=== PATIENT | male | born 1980 | race Caucasian/White ===

== ENCOUNTER 2022-09-29 10:28 | Emergency (ER) | payer SELFPAY ==
[~2022-09-29] VITALS: Ht 193 cm; Wt 108.9 kg
[2022-09-29 10:45] VITALS: BP_SYST 131
--- NOTE | 2022-09-29 10:47 | NUR ---
Patient to ER bed 05 to gown for evaluation. Side rails up. Report given to DOMO YUAN AND DOMO DE LEON.
--- NOTE | 2022-09-29 10:48 | NUR ---
PT CAME IN WITH MOTHER FROM HOME C.O LEFT WRIST PAIN X 1 MONTH, WORSE X 2 DAYS, HX OF GOUT (CURRENTLY ON ALLOPURIOL), DENIES INJURY OR TRAUMA TO AREA. PT IS AMBULATORY, AAOX4M VSS
--- NOTE | 2022-09-29 10:50 | NUR ---
Patient BIB by mother from home. Patient A&Ox4, stable. Chief Complaint: Left wrist pain x 1 mo gradual onset pain right now 9/10 intefering with sleep. Patient denies injury.
--- NOTE | 2022-09-29 10:56 | NUR ---
ER Dr. Mccormick at bedside examining patient.
[2022-09-29] MEDS ORDERED: HYDROcodone/ACETAMIN 10-325 MG TAB PO ONE (11:00)
[2022-09-29] MEDS ORDERED: KETOROLAC TROMETHAMINE 60 MG/2 ML VIAL IM ONE (11:00)
[2022-09-29 11:15] LABS: BASOPHILS # (AUTO) 0.1 K/uL (0.0-0.2); BASOPHILS % (AUTO) 0.9 % (0.0-2.0); EOSINOPHILS # (AUTO) 0.3 K/uL (0.0-0.4); EOSINOPHILS % (AUTO) 3.9 % (0.0-4.0); HEMATOCRIT 46.7 % (36-54); HEMOGLOBIN 16.1 g/dL (14.0-18.0); LYMPHOCYTES # (AUTO) 1.5 K/uL (1.0-5.5); LYMPHOCYTES % (AUTO) 22.4 % (20.5-51.5); MEAN CORPUSCULAR HEMOGLOBIN 30 pg (27-31); MEAN CORPUSCULAR HGB CONC 35 % (32-36); MEAN CORPUSCULAR VOLUME 87 fL (79.0-98.0); MONOCYTES # (AUTO) 0.4 K/uL (0.0-1.0); MONOCYTES % (AUTO) 6.2 % (1.7-9.3); NEUTROPHILS # (AUTO) 4.4 K/uL (1.8-7.7); NEUTROPHILS % (AUTO) 66.6 % (40.0-70.0); PLATELET COUNT (AUTO) 146 K/uL (130-430); RED BLOOD CELL COUNT(AUTO) 5.38 MIL/uL (4.2-6.2); RED CELL DISTRIBUTION WIDTH 13.3 % (9.0-15.0); WHITE BLOOD COUNT (AUTO) 6.6 K/uL (4.8-10.8)
[2022-09-29 11:19] LABS: ERYTHROCYTE SEDIMENTATION RATE 5 MM/HR (0-15)
--- NOTE | 2022-09-29 11:30 | NUR ---
Search Engine Optimizer re: homelessness Met with patient at bedside with his mother present. The patient resides at home with his mother. He is not homeless, and does have stable housing. I spoke with DOMO Stallings who advised that the triage assessment was completed incorrectly ini regards to the housing area. She indicated she would have EUGENE Kimball make the proper correction as it is known that the patient is not homeless. There are no further needs from social media sr strategy manager at this time.
[2022-09-29 11:38] LABS: ANION GAP 9 (5-15); CALCIUM 9.2 mg/dL (8.4-11.0); CHLORIDE 104 mmol/L (98-107); CREATININE 1.38 mg/dL (0.55-1.30); GFR AFRICAN AMERICAN 72 mL/min (>90); GLUCOSE 150 mg/dL (70-99); UREA NITROGEN, BLOOD 20 mg/dL (8-21)
--- NOTE | 2022-09-29 11:38 | NUR ---
Patient given Toradol and Bexar as ordered by Dr. Mccormick. Patient denied any allergies prior to administration. Patient tolerated IM injection of Toradol well. Patient reports pain at 9/10 prior to administration. Patient a&ox4 and stable with mother at bedside at this time.
[2022-09-29 11:43] LABS: ALANINE AMINOTRANSFERASE 39 U/L (12-78); ALBUMIN 4.2 g/dL (3.4-4.8); ASPARTATE AMINOTRANSFERASE 26 U/L (10-37); C-REACTIVE PROTEIN QUANT < 0.2 mg/dL (0-0.5); TOTAL BILIRUBIN 1.2 mg/dL (0.0-1.0); URIC ACID 7.1 mg/dL (2.4-7.0)
[2022-09-29] MEDS ORDERED: IBUP-1971 PO (12:39)
[2022-09-29] MEDS ORDERED: TRAM50TA2 PO (12:39)
--- NOTE | 2022-09-29 13:00 | NUR ---
Patient given written and verbal discharge instructions and verbalizes understanding. ER MD Mccormick discussed with patient the results and treatment provided. Patient in stable condition. ID arm band removed. I Rx of Ibuprofen and Tramadol sent to [facility] on file. Patient educated on pain management and to follow up with PMD. Opportunity for questions provided and answered. Patient discharged a&ox4 and stable with mother walking out.
== END 2022-09-29 13:00 | disposition home or self-care (01) ==
LOC: SED 10:28
DX: M10.9 Gout, unspecified (principal); M25.532 Pain in left wrist; Z79.899 Other long term (current) drug therapy
CPT/HCPCS: 99284; 80053; 84550; 85025; 85651; 86140; 36415; 73110; 96372; J1885

== ENCOUNTER 2022-10-15 00:36 | Emergency (ER) | payer MEDICAID ==
[~2022-10-15] VITALS: Ht 193 cm; Wt 108.9 kg
[~2022-10-15 00:36] MED LIST: IBUP-1971 PO; TRAM50TA2 PO
[2022-10-15 00:42] VITALS: BP_SYST 169
[2022-10-15] MEDS ORDERED: MAG-AL HYDROX/SIMETH 30 ML UDC PO ONE (01:15)
[2022-10-15] MEDS ORDERED: ONDANSETRON 4 MG ODT TAB PO ONE (01:15)
[2022-10-15] MEDS ORDERED: FAMOTIDINE 20 MG TABLET PO ONE (01:15)
[2022-10-15 01:45] LABS: ALANINE AMINOTRANSFERASE 38 U/L (12-78); ANION GAP 11 (5-15); ASPARTATE AMINOTRANSFERASE 26 U/L (10-37); CALCIUM 9.5 mg/dL (8.4-11.0); CHLORIDE 100 mmol/L (98-107); CREATININE 1.32 mg/dL (0.55-1.30); GFR AFRICAN AMERICAN 76 mL/min (>90); GLUCOSE 100 mg/dL (70-99); TOTAL BILIRUBIN 0.6 mg/dL (0.0-1.0); UREA NITROGEN, BLOOD 22 mg/dL (8-21)
[2022-10-15 01:55] LABS: BASOPHILS % (AUTO) 0.5 % (0.0-2.0); EOSINOPHILS # (AUTO) 0.3 K/uL (0.0-0.4); HEMATOCRIT 47.4 % (36-54); HEMOGLOBIN 16.4 g/dL (14.0-18.0); LYMPHOCYTES # (AUTO) 2.3 K/uL (1.0-5.5); LYMPHOCYTES % (AUTO) 26.8 % (20.5-51.5); MEAN CORPUSCULAR HEMOGLOBIN 30 pg (27-31); MEAN CORPUSCULAR HGB CONC 35 % (32-36); MEAN CORPUSCULAR VOLUME 86 fL (79.0-98.0); MONOCYTES # (AUTO) 0.5 K/uL (0.0-1.0); MONOCYTES % (AUTO) 5.9 % (1.7-9.3); NEUTROPHILS # (AUTO) 5.5 K/uL (1.8-7.7); NEUTROPHILS % (AUTO) 63.8 % (40.0-70.0); PLATELET COUNT (AUTO) 189 K/uL (130-430); WHITE BLOOD COUNT (AUTO) 8.6 K/uL (4.8-10.8)
== END 2022-10-15 04:35 | disposition home or self-care (01) ==
LOC: SED 00:36
DX: K21.9 Gastro-esophageal reflux disease without esophagitis (principal); Z79.899 Other long term (current) drug therapy
CPT/HCPCS: 36415; 71045; 80053; 84484; 85025; 93005; 99285; Q0162

== ENCOUNTER 2023-04-03 10:27 | Emergency (ER) | payer MEDICAID ==
[~2023-04-03] VITALS: Ht 193 cm; Wt 111.1 kg
[~2023-04-03 10:27] MED LIST changes: +CLON0.3T PO
[2023-04-03 10:40] VITALS: BP_SYST 156; PULSE 85; RESP 20; TEMP 98.3; O2SAT 98
[2023-04-03] MEDS ORDERED: TRAM50TA2 PO (10:51)
[2023-04-03] MEDS ORDERED: ALLO300T2 PO (10:51)
[2023-04-03] MEDS ORDERED: HYDROcodone/ACETAMIN 10-325 MG TAB PO ONE (11:30)
== END 2023-04-03 11:21 | disposition home or self-care (01) ==
LOC: SED 10:27
DX: M10.9 Gout, unspecified (principal); J45.901 Unspecified asthma with (acute) exacerbation; M79.672 Pain in left foot; K21.9 Gastro-esophageal reflux disease without esophagitis; Z79.899 Other long term (current) drug therapy
CPT/HCPCS: 99283

== ENCOUNTER 2023-04-27 13:51 | Emergency (ER) | payer MEDICAID ==
[~2023-04-27] VITALS: Ht 193 cm; Wt 111.1 kg
[~2023-04-27 13:51] MED LIST changes: +ALLO300T2 PO
[2023-04-27 14:02] VITALS: BP_SYST 160; PULSE 107; RESP 22; TEMP 98.3; O2SAT 97
[2023-04-27] MEDS ORDERED: IBUP-1971 PO (16:18)
[2023-04-27] MEDS ORDERED: ALLO300T2 PO (16:18)
[2023-04-27] MEDS ORDERED: TRAM50TA2 PO (16:18)
[2023-04-27 16:37] LABS: COVID19 ANTIGEN SOFIA FIA NEGATIVE (NEGATIVE); INFLUENZA TYPE A Negative (NEGATIVE); INFLUENZA TYPE B NEGATIVE (NEGATIVE)
== END 2023-04-27 16:55 | disposition home or self-care (01) ==
LOC: SED 13:51
DX: M10.9 Gout, unspecified (principal); J40 Bronchitis, not specified as acute or chronic; R05.9 Cough, unspecified; M25.571 Pain in right ankle and joints of right foot; M25.572 Pain in left ankle and joints of left foot; K21.9 Gastro-esophageal reflux disease without esophagitis; Z79.899 Other long term (current) drug therapy; Z20.822 Contact with and (suspected) exposure to COVID-19
CPT/HCPCS: 36415; 71045; 99284

== ENCOUNTER 2023-06-02 11:13 | Emergency (ER) | payer MEDICAID ==
[~2023-06-02] VITALS: Ht 193 cm; Wt 111.1 kg
[2023-06-02 11:34] VITALS: BP_SYST 138; PULSE 91; RESP 18; TEMP 98.3; O2SAT 95
[2023-06-02 12:38] LABS: INFLUENZA TYPE A Negative (NEGATIVE); INFLUENZA TYPE B NEGATIVE (NEGATIVE)
[2023-06-02] MEDS ORDERED: OSEL75CA PO (13:12)
[2023-06-02] MEDS ORDERED: ALBMDI INH (13:12)
[2023-06-02 16:37] VITALS: BP_SYST 183; PULSE 91; RESP 18; TEMP 98.6; O2SAT 95
== END 2023-06-02 13:22 | disposition home or self-care (01) ==
LOC: SED 11:13
DX: J11.1 Influenza due to unidentified influenza virus with other respiratory manifestations (principal); J40 Bronchitis, not specified as acute or chronic; K21.9 Gastro-esophageal reflux disease without esophagitis; Z79.899 Other long term (current) drug therapy; Z20.822 Contact with and (suspected) exposure to COVID-19
CPT/HCPCS: 36415; 71045; 99284